=== PATIENT | male | born 1970 | race Caucasian/White ===

== ENCOUNTER 2016-10-29 07:31 | Outpatient (CLI) | payer BC ==
[2016-10-29 07:59] LABS: Cardiac Risk 4.7 (Less than 4.5)
== END 2016-10-29 07:32 | disposition home or self-care (01) ==
LOC: NAVSJIPCSP 07:31 → NAV LAB 07:32
PROVIDERS: ATTEND Internal Medicine
DX: E78.5 Hyperlipidemia, unspecified (principal)
CPT/HCPCS: 36415; 80061

== ENCOUNTER 2017-01-16 14:27 | Outpatient (CLI) | payer BC ==
--- NOTE | 2017-01-16 16:19 | RAD ---
PA AND LATERAL VIEWS OF CHEST: Date: 01/16/17 HISTORY: Cough, congestion, fever, upper respiratory tract infection. FINDINGS: Comparison made with exam of 11/23/14. The heart size is normal. The lungs are well expanded without focal areas of consolidation, pneumotho rax, or pleural effusions. No acute osseous abnormality is seen. IMPRESSION: No radiographic evidence of acute cardiopulmonary process. POS: [facility]
== END 2017-01-16 14:28 | disposition home or self-care (01) ==
LOC: NAV RAD 14:27
DX: J06.9 Acute upper respiratory infection, unspecified (principal)
CPT/HCPCS: 71020

== ENCOUNTER 2018-04-19 18:48 | Emergency (ER) | payer BC | END 2018-04-19 19:15 | disposition home or self-care (01) | LOC: NAV ERS 18:48 | DX: R10.13 Epigastric pain (principal); I10 Essential (primary) hypertension; K21.9 Gastro-esophageal reflux disease without esophagitis; M19.90 Unspecified osteoarthritis, unspecified site; Z79.899 Other long term (current) drug therapy; Z87.891 Personal history of nicotine dependence | CPT/HCPCS: 99283 ==